=== PATIENT | female | born 1995 | race Caucasian/White ===

== ENCOUNTER 2019-08-20 07:40 | Day surgery (SDC) | payer BC ==
[~2019-08-20] VITALS: Ht 157.5 cm; Wt 68.6 kg
[2019-08-20 08:01] VITALS: BP 119/75; PULSE 86; TEMP 97.8
[2019-08-20] MEDS ORDERED: ZYRTEC5 MG PO (08:01)
[2019-08-20 10:15] VITALS: BP 107/76; PULSE 105; TEMP 98.1
--- NOTE | 2019-08-20 10:15 | NUR ---
Patient arrives to [facility] [place] [address] via cart, accompanied by ANTONIA Velez and PATSY Ledezma. Bedside report received. Patient is drowsy, but awake and chatting with staff. She denies pain or nausea at this time. Her HR is elevated. She is cold and is provided with warm blankets. Other VSS on room air. Her spouse is at the bedside. Lights dimmed for comfort. Call light in reach. Will continue to monitor.
[2019-08-20] MEDS ORDERED: PERCOCET 325 MG1 TA2 PO (10:25)
[2019-08-20] MEDS ORDERED: IBU600 MG PO (10:25)
[2019-08-20 10:30] VITALS: BP 107/70; PULSE 75
--- NOTE | 2019-08-20 10:30 | NUR ---
Patient is resting comfortably in her room. Her vitals are stable and WNL on room air. She denies any pain or nausea at this time. Her abdomen is not distended. No significant bleeding noted. HOB raised. Offered and receives water to drink. Tolerates PO well. Will continue to monitor.
[2019-08-20 10:45] VITALS: BP 101/62; PULSE 73
--- NOTE | 2019-08-20 10:45 | NUR ---
Patient is sitting up in bed, PO intake, conversing with . She denies any pain or nausea. Assisted to sit on the side of the bed. No bleeding noted on bed pad. Abdomen soft, not distended. VSS and WNL on room air. She denies any dizziness upon position change. Denies other symptoms. States "I'm ready to go home and sleep in my bed".
[2019-08-20 11:00] VITALS: BP 102/56; PULSE 67
--- NOTE | 2019-08-20 11:00 | NUR ---
Patient has met discharge criteria. Patient and her spouse both state they are ready to go home. VSS and WNL on room air. Will return with discharge papers.
--- NOTE | 2019-08-20 11:15 | NUR ---
Discharge instructions discussed, denies any questions, and verbalizes understanding. Given paper prescription for Percocet and notified of Motrin prescription at the pharmacy. PIV removed with catheter intact and hemostasis achieved. Changes to clothing independently. Escorted to exit via wheelchair by staff. Discharged to home with ride in private vehicle at 1115.
== END 2019-08-20 11:15 | disposition home or self-care (01) ==
LOC: SDCO 07:40
DX: O02.1 Missed abortion (principal); Z88.1 Allergy status to other antibiotic agents; Z88.8 Allergy status to other drugs, medicaments and biological substances; Z83.3 Family history of diabetes mellitus; Z82.49 Family history of ischemic heart disease and other diseases of the circulatory system; Z80.8 Family history of malignant neoplasm of other organs or systems; Z88.2 Allergy status to sulfonamides
CPT/HCPCS: J1885; J2405; J2704; J3010; J7120

== ENCOUNTER 2019-08-20 11:50 | Emergency (ER) | payer BC ==
[~2019-08-20] VITALS: Ht 157.5 cm; Wt 68.2 kg
[~2019-08-20 11:50] MED LIST: IBU600 MG PO; PERCOCET 325 MG1 TA2 PO; ZYRTEC5 MG PO
[2019-08-20 12:01] VITALS: BP 97/53; TEMP 97.1
[2019-08-20 12:40] LABS: BASO % 0.2 % (0.0-2.0); EOS # 0.1 (0.0-0.7); GRAN # 8.9 (1.4-6.5); GRAN % 71.9 % (42.2-75.2); HEMOGLOBIN 11.9 g/dl (12.5-16.0); LYMPH # 2.5 (1.2-3.4); LYMPH % 20.1 % (20.0-51.0); MEAN CELL VOLUME 86 fl (80.0-100.0); MEAN CORPUSCULAR HEMOGLOBIN 30 pg (27.0-31.0); MEAN CORPUSCULAR HGB CONC 34 g/dl (33.0-37.0); MEAN PLATELET VOLUME 10.5 fl (7.4-10.4); MONO # 0.8 (0.1-0.6); MONO % 6.3 % (1.7-9.3); PLATELET COUNT 190 K/mm3 (130-400); RED BLOOD COUNT 4.03 M/mm3 (4.10-5.30); REDCELL DISTRIBUTION WIDTH-CV 12.3 % (11.5-14.5)
[2019-08-20 12:46] LABS: HEMATOCRIT 34.8 % (37.0-47.0)
[2019-08-20 12:53] LABS: ALBUMIN 3.8 gm/dL (3.5-5.0); BILIRUBIN,TOTAL 0.3 mg/dL (0.0-1.0); CALCIUM 8.9 mg/dL (8.4-10.2); CREATININE, serum 0.6 (0.52-1.25); POTASSIUM 3.5 mmol/L (3.4-5.0); TOTAL PROTEIN 6.7 gm/dL (6.4-8.2)
[2019-08-20 15:01] VITALS: PULSE 98
== END 2019-08-20 15:02 | disposition home or self-care (01) ==
LOC: COL.ER 11:50
PROVIDERS: Emergency Medicine
DX: R55 Syncope and collapse (principal)
CPT/HCPCS: J7030

== ENCOUNTER → 2019-09-29 | Outpatient (CLI) | payer BC | LOC: COL.RAD 13:55 | DX: Q51.3 Bicornate uterus (principal) ==